=== PATIENT | female | born 2000 | race Caucasian/White ===

== ENCOUNTER 2019-04-24 13:14 | Emergency (ER) | payer BC ==
[~2019-04-24] VITALS: Ht 157.5 cm; Wt 61.4 kg
[~2019-04-24 13:14] MED LIST: CLOT24CR4 TOP; HC30CR25 TOP
[2019-04-24 13:18] VITALS: BP 114/53; PULSE 52; RESP 16; Ht 157.5 cm; Wt 61.4 kg
== END 2019-04-24 14:41 | disposition home or self-care (01) ==
LOC: FTE 13:14
DX: R21 Rash and other nonspecific skin eruption (principal); J45.909 Unspecified asthma, uncomplicated
CPT/HCPCS: 99282